=== PATIENT | female | born 1985 | race Caucasian/White ===

== ENCOUNTER 2020-12-19 10:39 | Emergency (ER) | payer OTHER, SELFPAY ==
[~2020-12-19 10:39] MED LIST: ADALAT CC30 MG PO; FIORICET1 EACH PO
[2020-12-19 11:13] LABS: BASOPHIL 0.8 % (0-2); EOSINOPHIL 0.8 % (0-5); HCT 42.2 % (37.0-47.0); HGB 14.2 g/dl (12.5-16.0); LYMPHOCYTE 28.5 % (15-48); MCH 31.1 pg (25.0-31.0); MCHC 33.6 g/dL (32.0-36.0); MCV 92.5 fL (78.0-100.0); MONOCYTE 4.8 % (0-12); MPV 10.3 fL (6.0-9.5); NEUTROPHIL 64.9 % (41-80); NRBC 0; PLT 279 K/uL (150-400); RBC 4.56 M/uL (4.20-5.40); WBC 4.8 K/uL (4.0-10.5)
[2020-12-19 11:14] LABS: BILIRUBIN NEGATIVE (NEGATIVE); BLOOD 3+ Ery/uL (NEGATIVE); COLOR YELLOW (YELLOW); GLUCOSE (U) NORMAL (NORMAL); LEUKOCYTES NEGATIVE Leu/uL (NEGATIVE); NITRITE NEGATIVE (NEGATIVE); PROTEIN 1+ mg/dL (NEGATIVE); SPECIFIC GRAVITY >=1.030 (1.001-1.030); UROBILINOGEN 0.2 mg/dL (0.2-1.0); pH 5.5 (5.0-9.0)
[2020-12-19 11:18] LABS: CLARITY CLOUDY (CLEAR)
[2020-12-19 11:25] LABS: BACTERIA 1+; URINARY RBC TNTC; YEAST PRESENT
[2020-12-19 11:30] LABS: ALBUMIN 4.3 g/dL (3.4-5.0); BILIRUBIN - TOTAL 0.3 mg/dL (0.2-1.0); BUN/CREAT RATIO (CALC) 20.6 RATIO; CREATININE 0.68 mg/dL (0.51-0.95); GLOBULIN (CALCULATION) 3.4 g/dL; POTASSIUM 3.6 mmol/L (3.5-5.1); TOTAL PROTEIN 7.7 g/dL (6.4-8.2)
[2020-12-19] MEDS ORDERED: FLOMAX 0.4 MG0.4 MG PO (14:25)
[2020-12-19] MEDS ORDERED: NORCO 5-325 TA1 EACH PO (14:25)
[2020-12-19] MEDS ORDERED: NAPROXEN500 MG PO (14:25)
== END 2020-12-19 15:00 | disposition home or self-care (01) ==
LOC: FER 10:39
PROVIDERS: Emergency Medicine
DX: N13.2 Hydronephrosis with renal and ureteral calculous obstruction (principal); Z90.49 Acquired absence of other specified parts of digestive tract; Z98.890 Other specified postprocedural states
CPT/HCPCS: 36415; 80053; 81001; 82150; 83690; 85025; J1170; J1885; J2405; Q9967